=== PATIENT | male | born 1935 ===

== ENCOUNTER 2019-02-17 10:28 | Outpatient (CLI) | payer OTHER ==
[~2019-02-17 10:28] MED LIST: APRESOLINE 10MG10 MG; ASPIR 8181 MG; ZOLOFT25 MG
== END 2019-02-17 10:36 | disposition home or self-care (01) ==
LOC: LAB 10:28
DX: D72.1 Eosinophilia (principal); K29.70 Gastritis, unspecified, without bleeding; E03.8 Other specified hypothyroidism; R97.0 Elevated carcinoembryonic antigen [CEA]; R05 Cough; E06.3 Autoimmune thyroiditis; R97.8 Other abnormal tumor markers; I10 Essential (primary) hypertension; D50.8 Other iron deficiency anemias; D51.1 Vitamin B12 deficiency anemia due to selective vitamin B12 malabsorption with proteinuria; R19.5 Other fecal abnormalities; E78.2 Mixed hyperlipidemia; D51.8 Other vitamin B12 deficiency anemias; D51.0 Vitamin B12 deficiency anemia due to intrinsic factor deficiency; F33.8 Other recurrent depressive disorders; R97.20 Elevated prostate specific antigen [PSA]

== ENCOUNTER 2019-02-17 10:59 | Outpatient (CLI) | payer OTHER | END 2019-02-17 11:05 | disposition home or self-care (01) | LOC: SONOGRAMA 10:59 → MAMO-SONO 13:15 | DX: D72.1 Eosinophilia (principal); I10 Essential (primary) hypertension; E78.2 Mixed hyperlipidemia; F33.8 Other recurrent depressive disorders; K29.70 Gastritis, unspecified, without bleeding; R05 Cough; E03.8 Other specified hypothyroidism; E06.3 Autoimmune thyroiditis; E04.2 Nontoxic multinodular goiter ==

== ENCOUNTER 2019-03-21 11:09 | Emergency (ER) | payer OTHER ==
[~2019-03-21] VITALS: Ht 167.6 cm; Wt 72.6 kg
[2019-03-21] MEDS ORDERED: PRILOSEC OTC20 MG PO (11:54)
[2019-03-21] MEDS ORDERED: HYDROCHLOROTHIA25 MG PO (11:54)
[2019-03-21] MEDS ORDERED: FISH OIL EC 1,1 EAC1 PO (11:55)
[2019-03-21] MEDS ORDERED: MELATONIN10 MG PO (11:55)
[2019-03-21] MEDS ORDERED: CENTRUM SILVER1 EAC4 PO (11:55)
[2019-03-21] MEDS ORDERED: AZITHROMYCIN250 MG PO (11:56)
[2019-03-21] MEDS ORDERED: LUMIGAN2.5 M1 OP (11:56)
[2019-03-21] MEDS ORDERED: COMBIGAN EYE DRO5 ML OP (11:56)
[2019-03-21] MEDS ORDERED: ZYNCOF 400-201 EACH PO (11:57)
[2019-03-21] MEDS ORDERED: DEXAMETHAS0.5 MG/5 M (11:57)
== END 2019-03-21 16:16 | disposition home or self-care (01) ==
LOC: ER 11:09
DX: J45.909 Unspecified asthma, uncomplicated (principal)